=== PATIENT | male | born 1985 | race Asian ===

== ENCOUNTER → 2016-07-29 | Outpatient (CLI) | payer BC | LOC: YCFC.O 09:47 | PROVIDERS: ATTEND Nurse Practitioner Family | DX: Z00.00 Encounter for general adult medical examination without abnormal findings (principal); Z13.9 Encounter for screening, unspecified ==

== ENCOUNTER → 2017-07-14 | Outpatient (CLI) | payer BC | END | disposition home or self-care (01) | LOC: LAB.O 09:21 | PROVIDERS: ATTEND Nurse Practitioner Family | DX: Z00.00 Encounter for general adult medical examination without abnormal findings (principal) ==

== ENCOUNTER → 2017-07-16 | Outpatient (CLI) | payer BC | END | disposition home or self-care (01) | LOC: YCFC.O 12:47 | PROVIDERS: ATTEND Nurse Practitioner Family | DX: R53.81 Other malaise (principal) ==

== ENCOUNTER → 2017-11-04 | Outpatient (CLI) | payer BC ==
--- NOTE | 2017-11-04 16:27 | RAD ---
EXAM DESCRIPTION: Chest,2 Views CLINICAL HISTORY: PRECORDIAL CHEST PAIN COMPARISON: None TECHNIQUE: PA/lateral FINDINGS: Heart size is normal with normal pulmonary vascularity. No pleural effusion or pneumothorax. Lungs are normal in volume. Lateral view shows intact sternum and T-spine. On the lateral view, markings are prominent over the posterior aspect of the cardiac silhouette suggesting crowded vessels or interstitial infiltrate or scarring. This may be in the medial right lung base. Other areas of the lungs are clear. IMPRESSION: Minimal infiltrate or atelectasis in the medial right lung base. Otherwise clear chest. Electronically signed by: Calderon Banks MD 11/04/2017 4:26 PM CDT
== END ==
LOC: LAB.O 09:55
PROVIDERS: ATTEND Nurse Practitioner Family
DX: R07.2 Precordial pain (principal)

== ENCOUNTER 2017-11-07 00:04 | Emergency (ER) | payer BC ==
[2017-11-07] MEDS ORDERED: NITROGLYCERIN 0.4 MG 25 EA TAB SL ONE (00:10)
[2017-11-07] MEDS ORDERED: ASPIRIN TABLET 325 MG TAB ONE (00:10)
[2017-11-07 00:29] VITALS: TEMP 98.2
[2017-11-07] MEDS ORDERED: ASPIRIN TABLET 325 MG TAB PO ONE (00:31)
[2017-11-07] MEDS ORDERED: IPRATROPIUM BROMIDE NEBS 0.5 MG/2.5 ML VIAL NEB ONE (00:31)
[2017-11-07] MEDS ORDERED: predniSONE 20 MG TAB PO ONE (00:31)
--- NOTE | 2017-11-07 01:22 | RAD ---
EXAM: PA and LATERAL CHEST RADIOGRAPHS CLINICAL INDICATION: Acute chest pain. COMPARISON: Compared to the chest radiographs of November 04, 2017. FINDINGS: Cardiac size and pulmonary vasculature are normal. Lungs are clear. No pleural effusions or pneumothorax. No free peritoneal gas layering under the hemidiaphragms. No suspicious hilar or mediastinal lymphadenopathy. Bones are normal. IMPRESSION: Normal chest radiographs. Electronically signed by: Bryon Garcia MD 11/07/2017 1:20 AM CDT
[2017-11-07] MEDS ORDERED: POTASSIUM CHLORIDE ELIXIR 20 MEQ/15 ML UD PO ONE (01:46)
[2017-11-07] MEDS ORDERED: AMOXICILLIN & POT CLAVULANATE 875 MG TAB PO ONE (01:47)
--- NOTE | 2017-11-07 01:50 | ED.PDOC ---
History of Present Illness - General Chief Complaint: Chest Pain/WA Stated Complaint: chest pain Time Seen by Provider: 11/07/17 00:11 Source: patient Exam Limitations: no limitations - History of Present Illness Initial Comments: the patient is a 32-year-old male presenting to the emergency room secondary to chest pain as been ongoing for the last week. Chest pain is actually sternal to substernal. It is worse with sitting up and standing up. It is not really worse with exertion. It is a little better with lying back. He has had a mild cough and has recently had a mild asthma exacerbation. Chest x-ray from 2 days ago showed a mild right infrahilarinfiltrate versus atelectasis. No fever and no productive cough. No syncope or near syncope. He does have several family members with known coronary-related heart issues. He has a known right bundle branch block that wasknown at least 3 years ago. No history of any coronary artery disease. No palpitations. No history of any pericarditis. No fevers. Physical exam shows tenderness to palpation over the sternum itself. No rub is heard. No significant murmurs are heard. Lungs do show some mild scattered wheezes. The patient reports he cannot take any beta agonist medications. Timing/Duration: 1 week Severity: mild Improving Factors: nothing Worsening Factors: movement Associated Symptoms: denies symptoms Allergies/Adverse Reactions: Allergies Albuterol [From Ventolin] Allergy (Verified 09/27/14 00:42) Home Medications: Ambulatory Orders Amoxicillin & Pot Clavulanate [Augmentin Tab] 875 mg PO BID #10 tab 11/07/17 Colchicine 0.6 mg PO DAILY #5 cap 11/07/17 predniSONE [Prednisone] 20 mg PO DAILY #5 tab 11/07/17 Review of Systems - Review of Systems Constitutional: States: no symptoms reported EENTM: States: no symptoms reported Respiratory: States: short of breath, wheezing Cardiology: States: chest pain Gastrointestinal/Abdominal: States: no symptoms reported Genitourinary: States: no symptoms reported Musculoskeletal: States: no symptoms reported Skin: States: no symptoms reported Neurological: States: no symptoms reported Endocrine: States: no symptoms reported All other Systems: No Change from Baseline Past Medical History (General) - Patient Medical History Hx Asthma: Yes Hx Cardiac Disorders: Yes Hx Hypertension: Yes Hx Gastroesophageal Reflux: Yes Surgical History: no surgical history - Vaccination History Hx Tetanus, Diphtheria Vaccination: Yes - 10yrs Hx Influenza Vaccination: Yes - 2017 - Social History Hx Tobacco Use: Yes Hx Alcohol Use: Yes - occ Family Medical History - Family History Father Family History: Unknown Physical Exam - Physical Exam General Appearance: Alert, Comfortable, No apparent distress Eye Exam: bilateral normal Ears, Nose, Throat: hearing grossly normal, normal ENT inspection, normal pharynx Neck: full range of motion, supple Respiratory: chest non-tender, lungs clear, normal breath sounds, no respiratory distress, no accessory muscle use Cardiovascular/Chest: normal peripheral pulses, regular rate, rhythm, no edema Peripheral Pulses: radial,right: 2+, radial,left: 2+, dorsalis pedis,right: 2+, dorsalis pedis,left: 2+ Gastrointestinal/Abdominal: non tender, soft Rectal Exam: deferred Back Exam: normal inspection, no CVA tenderness Extremity: normal range of motion, non-tender, normal inspection, no pedal edema , normal capillary refill Neurologic: [employer] II-XII nml as tested, alert, normal mood/affect, oriented x 3 Skin Exam: normal color Comments: Vital Signs - 24 hr 11/07/17 00:20 Temperature 98.2 F Pulse Rate [ 68 left] Respiratory 18 Rate Blood Pressure 149/95 [left] O2 Sat by Pulse 97 Oximetry Progress - Progress Progress: 11/07/17 01:53 the patient is a 32-year-old male presenting to the emergency room secondary to atypical chest pain for the better part of the last 5-6 days. He does have some costochondritis which may be due to gout given his elevated uric acid level. He was given a dose of colchicine here and will be written for this for the next 5 days. Additionally he did have some mild hypokalemia and was given a dose of potassium here today. This needs to be followed in one to 2 weeks. Additionally a free T4 was sent out in response to a low TSH drawn earlier this week. This is a send out lab and does need to be followed up with his primary care doctor. The patient is also going to be placed on low-dose prednisone for his asthma for the next 5 days and Augmentin for the possibility of a small right infrahilar infiltrate contributing to his symptoms. The patient is to keep himself well-hydrated. He needs to minimize red meat and beer for the next couple of weeks in case this is contributing to a gout flare. ER warnings were given for any significant worsening. I do recommend that the patient also get set up with an echocardiogram in the near future given his right bundle branch block and his family history. - Results/Orders Results/Orders: 11/08/17 00:30 EKG STAT old right bundle branch block. This makes it difficult to interpret the EKG otherwise. He has normal sinus rhythm. Rate is 77 bpm. Consistent with EKG from 2015. Chest x-ray today shows no acute changes. He does have a small right infrahilarinfiltrate versus atelectasis. Laboratory Results - last 24 hr 11/07/17 11/07/17 11/07/17 00:40 00:40 00:40 WBC 7.3 RBC 5.06 Hgb 15.4 Hct 44.8 MCV 88.4 MCH 30.5 MCHC 34.5 RDW 12.7 Plt Count 306 MPV 7.6 Absolute Neuts (auto) 4.20 Absolute Lymphs (auto) 1.90 Absolute Monos (auto) 0.80 Absolute Eos (auto) 0.40 Absolute Basos (auto) 0.10 Neutrophils % 57.1 Lymphocytes % 25.8 Monocytes % 10.3 H Eosinophils % 6.1 H Basophils % 0.7 PT 11.7 INR 1.010 PTT (SP) 32.1 D-Dimer, Quantitative < 230 Sodium 136 Potassium 3.5 L Chloride 101 Carbon Dioxide 27 Anion Gap 11.5 L BUN 16 Creatinine 0.83 BUN/Creatinine Ratio 19.3 Random Glucose 113 H Serum Osmolality 274.0 L Uric Acid 9.9 H Calcium 9.7 Magnesium 2.0 Total Bilirubin 0.9 AST 26 ALT 41 Alkaline Phosphatase 64 D Creatine Kinase 182 H CK-MB (CK-2) 2.2 CK-MB (CK-2) % Not Reportable Troponin I < 0.02 B-Natriuretic Peptide 13.1 Serum Total Protein 7.8 Albumin 4.5 Globulin 3.3 Albumin/Globulin Ratio 1.4 Departure - Departure Clinical Impression: Atypical chest pain, Hyperuricemia Disposition: Discharge to Home or Self Care Condition: Fair Departure Forms: ED Discharge - Pt. Copy, Patient Portal Self Enrollment Diet: other Activity: increase activity as tolerated Referrals: Kathy Matute NP [Primary Care Provider] - 1-5 Days Prescriptions: Amoxicillin & Pot Clavulanate [Augmentin Tab] 875 mg PO BID #10 tab Colchicine 0.6 mg PO DAILY #5 cap predniSONE [Prednisone] 20 mg PO DAILY #5 tab Home Medications: Ambulatory Orders Amoxicillin & Pot Clavulanate [Augmentin Tab] 875 mg PO BID #10 tab 11/07/17 Colchicine 0.6 mg PO DAILY #5 cap 11/07/17 predniSONE [Prednisone] 20 mg PO DAILY #5 tab 11/07/17 Additional Instructions: the patient is a 32-year-old male presenting to the emergency room secondary to atypical chest pain for the better part of the last 5-6 days. He does have some costochondritis which may be due to gout given his elevated uric acid level. He was given a dose of colchicine here and will be written for this for the next 5 days. Additionally he did have some mild hypokalemia and was given a dose of potassium here today. This needs to be followed in one to 2 weeks. Additionally a free T4 was sent out in response to a low TSH drawn earlier this week. This is a send out lab and does need to be followed up with his primary care doctor. The patient is also going to be placed on low-dose prednisone for his asthma for the next 5 days and Augmentin for the possibility of a small right infrahilar infiltrate contributing to his symptoms. The patient is to keep himself well-hydrated. He needs to minimize red meat and beer for the next couple of weeks in case this is contributing to a gout flare. ER warnings were given for any significant worsening. I do recommend that the patient also get set up with an echocardiogram in the near future given his right bundle branch block and his family history.
[2017-11-07] MEDS ORDERED: COLCHICINE 0.6 MG TAB PO ONE (01:57)
[2017-11-07 02:17] VITALS: O2SAT 98
[2017-11-07 02:18] VITALS: BP 142/87
== END 2017-11-07 02:18 | disposition home or self-care (01) ==
LOC: ER 00:04
DX: R07.89 Other chest pain (principal); E79.0 Hyperuricemia without signs of inflammatory arthritis and tophaceous disease; E87.6 Hypokalemia; I45.10 Unspecified right bundle-branch block; J45.909 Unspecified asthma, uncomplicated; I10 Essential (primary) hypertension; Z82.49 Family history of ischemic heart disease and other diseases of the circulatory system; Z87.891 Personal history of nicotine dependence
CPT/HCPCS: 36415; 71046; 80053; 82550; 82553; 83735; 83880; 84439; 84484; 84550; 85025; 85379; 85610; 85651; 85730; 93005; 94640; J7512; J7644

== ENCOUNTER → 2017-11-12 | Outpatient (CLI) | payer BC | LOC: GMAM 14:27 | PROVIDERS: ATTEND Family Medicine | DX: R94.6 Abnormal results of thyroid function studies (principal) ==

== ENCOUNTER → 2018-07-09 | Outpatient (CLI) | payer BC | LOC: GMAJS 10:33 | PROVIDERS: ATTEND Physician Assistant | DX: Z02.89 Encounter for other administrative examinations (principal) ==

== ENCOUNTER → 2018-07-29 | Outpatient (CLI) | payer BC | LOC: GMAM 11:41 | PROVIDERS: ATTEND Family Medicine | DX: K62.5 Hemorrhage of anus and rectum (principal) ==

== ENCOUNTER → 2018-08-04 | Outpatient (CLI) | payer BC ==
--- NOTE | 2018-08-04 09:03 | US ---
EXAM DESCRIPTION: Gall Bladder CLINICAL HISTORY: RIGHT UPPER QUADRANT ABDOMIAL PAIN COMPARISON: None Available. TECHNIQUE: Right upper quadrant ultrasound FINDINGS: Pancreas: Visualized portions of the pancreas are unremarkable. Bowel gas obscures some areas. Aorta/inferior vena cava: No aortic aneurysm. Normal inferior vena cava. Liver: The liver is homogeneous in texture with normal echogenicity of the hepatic parenchyma. No focal liver lesion or intrahepatic bile duct dilatation. No liver surface irregularity. Normal appearance of the portal vein and hepatic veins. Gallbladder: Gallbladder appears normal in size with multiple polyps, the largest 9 mm. These could be followed up with repeat gallbladder sonogram in 6-12 months. Common bile duct: Normal caliber measuring 4.0 mm. Right kidney: Renal length is 9.3 cm, slightly small for an adult. Normal cortical echogenicity. Cortical thickness is normal. No hydronephrosis is seen. No renal mass or shadowing calculus. IMPRESSION: Multiple gallbladder polyps. Electronically signed by: Calderon Banks MD 08/04/2018 9:02 AM [facility]
== END ==
LOC: US 08:05
PROVIDERS: ATTEND Family Medicine
DX: R10.11 Right upper quadrant pain (principal); K82.4 Cholesterolosis of gallbladder

== ENCOUNTER 2018-10-15 05:43 | Observation (INO) | payer BC ==
[2018-10-15] MEDS ORDERED: LACTATED RINGERS 1,000 ML ONE (05:53)
[2018-10-15] MEDS ORDERED: PROPOFOL 200 MG/20 ML VIAL IV ONE (07:00)
[2018-10-15] MEDS ORDERED: LACTATED RINGERS 1,000 ML BAG IV ONE (10:55)
--- NOTE | 2018-10-15 12:27 | RAD ---
EXAM DESCRIPTION: Chest,1 View CLINICAL HISTORY: 33 years Male, Post Op check for aspiration COMPARISON: Previous chest x-ray November 07, 2017 TECHNIQUE: AP portable chest. FINDINGS: Heart size is prominent with normal pulmonary vascularity. Increased density is seen in the lingula and left lower lobe consistent with infiltrate or volume loss, possibly pneumonia or aspiration. No pulmonary mass or worrisome nodule. No pneumothorax or pleural effusion. Bones are unremarkable. IMPRESSION: Infiltrate/volume loss in the left lower lobe and lingula. Electronically signed by: Calderon Banks MD 10/15/2018 12:24 PM CDT
[2018-10-15] MEDS ORDERED: LEVALBUTEROL NEBS 1.25 MG/3 ML VIAL NEB ONE ×2 (12:33→12:50)
--- NOTE | 2018-10-15 13:16 | OP ---
DATE OF PROCEDURE: 10/15/18 PREPROCEDURE DIAGNOSIS: 1. Rectal bleeding. POSTPROCEDURE DIAGNOSIS: 1. Large non-bleeding internal hemorrhoids. PROCEDURE: 1. Colonoscopy. SURGEON: Torito Sanders MD COMPLICATIONS: No immediate complications. SEDATION: The patient was sedated via IV propofol by the Anesthesia Department. CONSENT: Prior to the procedure, risks, benefits and alternatives to the therapy were discussed with the patient. The risks included bleeding, infection, perforation and . The patient agreed to the procedure and signed a consent. PREPROCEDURE ANESTHESIA ASSESSMENT: An examination revealed no contraindication to sedation. Airway examination demonstrated a Mallampati class type 2, ASA grade assessment type 2. Throughout the procedure, the patient's blood pressure and additional vital signs were closely monitored. PROCEDURE: The patient was placed in the left lateral decubitus position and a rectal examination was performed. Digital examination was within normal limits. The Olympus colonoscope was passed in the anus, rectum, traversing the colon to the level of the cecum as identified by the appendiceal orifice. The scope was retracted and the mucosa was visualized. The entirety of the exam was performed under direct visualization. Retroflexion was performed in the rectum. Preparation quality was excellent. The withdrawal time was greater than 6 minutes. The patient tolerated the procedure well. FINDINGS: 1. The entirety of the examination of the colon was unremarkable. 2. Large non-bleeding internal hemorrhoids, grade 2, were found in retroflexion. 3. The terminal ileum appeared normal. RECOMMENDATION: 1. Return the patient home. 2. Resume previous diet favoring high-fiber foods. 3. May add Citrucel 2 doses every day. 4. If recurrent or persistent rectal bleeding, may proceed with hemorrhoidal banding. 5. Return to my office p.r.n. 6. Findings were discussed with the patient and family member. [facility][id number] [facility]
[2018-10-15] MEDS ORDERED: LEVALBUTEROL NEBS 1.25 MG/3 ML VIAL INH PRN (13:55)
[2018-10-15] MEDS ORDERED: SODIUM CHLORIDE 0.9% (FLUSH) 10 ML SYG IV PRN (13:55)
[2018-10-15] MEDS ORDERED: ACETAMINOPHEN 325 MG TAB PO PRN (13:55)
[2018-10-15] MEDS ORDERED: IV SET AND CAP CHANGE INJ INJ SCH (14:00)
[2018-10-15] MEDS ORDERED: AMPICILLIN & SULBACTAM SODIUM 1.5 GM in SODIUM CHL 0.9% 50ML MIN-BAG+ 50 ML IVPB ONE (14:01)
[2018-10-15] MEDS ORDERED: methylPREDNISolone SODIUM SUC 125 MG/2 ML VIAL IV ONE (14:03)
--- NOTE | 2018-10-15 14:08 | RAD ---
EXAM DESCRIPTION: Chest,1 View CLINICAL HISTORY: 33 years Male, ASPIRATION PNEUMONIA COMPARISON: Previous study October 15, 2018 TECHNIQUE: AP portable chest. FINDINGS: Heart size is prominent with normal pulmonary vascularity. Infiltrate has increased in extent in the mid and left lower lung zones. There is partial obscuration of the left heart margin suggesting lingular involvement as well as abnormal density behind the heart consistent with lower lobe involvement. There is partial obscuration of the peripheral left hemidiaphragm. Findings are consistent with pneumonia. No pulmonary mass or worrisome nodule. No pneumothorax or pleural effusion. Bones are unremarkable. IMPRESSION: Pneumonic infiltrate increasing in extent in the mid and left lower lung zones. Electronically signed by: Calderon Banks MD 10/15/2018 2:05 PM CDT
--- NOTE | 2018-10-15 14:19 | HP ---
SUPERVISING PHYSICIAN: Matias Bennett M.D. CHIEF COMPLAINT: Aspiration post sedation. HISTORY OF PRESENT ILLNESS: Mr. Mendenhall is a 33 year-old male that had an EGD and colonoscopy today. He had no complications until after he was given a dose of Propofol and on expiration of the scope he had some aspiration of gastric contents. In the PACU he developed a left sided infiltrate. Dr. Bennett, his primary care physician, requested the patient be placed in observation for acute aspiration for closer monitoring and treatment. He was started on antibiotics with Unasyn and given some Solu-Medrol and inhaled steroids, and oxygen. He was placed in observation in stable condition. PAST MEDICAL HISTORY: 1. Right bundle branch block. 2. Asthma. 3. Gout. 4. History of hemorrhoids. PAST SURGICAL HISTORY: No surgeries. HOME MEDICATIONS: 1. Allopurinol 100 mg daily. ALLERGIES: ALBUTEROL. FAMILY HISTORY: Mother has asthma. Father has prostate cancer. He had an uncle that from hematological cancer with severe anemia at 40 years of age. He has 2 children that are all healthy. SOCIAL HISTORY: The patient lives in [place]. He is . 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 He has only a brief history of smoking for a year in 2003 and 2004 while in school. He rarely drinks alcohol. Does not use illicit drugs. REVIEW OF SYSTEMS: CONSTITUTIONAL: Negative for any chills, fevers, general malaise, unintentional weight loss. HEENT: Negative for any headaches, vision changes, sore throat, nasal congestion, ear aches. RESPIRATORY: As noted in History of Present Illness, acute aspiration with some shortness of breath. HEART: History of right bundle branch block but no chest pains, palpitations or syncopal episodes. GASTROINTESTINAL: As noted in history of present illness, recent colonoscopy with hemorrhoids noted. No abdominal pains, constipation or diarrhea. GENITOURINARY: Denies any dysuria, hematuria or polyuria. MUSCULOSKELETAL: No complaints. NEUROLOGIC: Negative for ataxia, seizures, syncope or other neurological deficits. PHYSICAL EXAMINATION: VITAL SIGNS: Temperature 97.5, pulse 107, blood pressure 120/81, respirations 16, showing 100% saturation on nasal cannula at 2 liters at rest. GENERAL: The patient was seen in PACU. He is resting comfortably. Appears to be in no distress. HEENT: Tympanic membranes were clear bilaterally. Oropharynx was pink and moist without any lesions. NECK: Supple, non-tender. Full range of motion. No jugular venous distention. CHEST: Lung sounds are diminished on the left with some rhonchi compared to the right which is clear. No wheezing or rales. CARDIOVASCULAR: Regular rate and rhythm. ABDOMEN: Soft, non-tender. Positive bowel sounds. EXTREMITIES: Without any edema. NEUROLOGIC: He is alert and oriented times three. LABORATORY: White count 11,500. Chemistries showed normal electrolytes, BUN 15, creatinine 1.09. RADIOLOGY: Chest x-ray per radiology interpretation post aspiration event showed pneumonic infiltrate increasing to the extent of the mid and left lower lung zones. No pulmonary mass or worrisome nodule. No pneumothorax. Findings were consistent with pneumonia. ASSESSMENT: 1. Acute pneumonitis secondary to aspiration post esophagogastroduodenoscopy with concerns for developing pneumonia. 2. History of asthma with exacerbation secondary to #1. 3. History of right bundle branch block with no complications. 4. History of gout on Allopurinol. 5. History of recent colonoscopy and esophagogastroduodenoscopy with no significant findings other than hemorrhoids reported per the patient. PLAN: The patient is going to be placed in observation. I started him on Unasyn 1.5 grams every 8 hours. He will be on Xopenex every 4 hours with p.r.n. treatments as needed. Will also give him 125 of Solu-Medrol IV. Will put him on some Pulmicort. Also put him on CPAP or BiPAP as tolerated to help recruit some lung zones on the left side. Will closely monitor the patient and hopefully he will discharge tomorrow. At discharge he will need continued followup with Dr. Bennett and more likely will send him home on continued antibiotic coverage with Augmentin. Until he can continue with outpatient management will continue to monitor and treat as needed. [facility][id number] [facility]
[2018-10-15] MEDS ORDERED: AMPICILLIN & SULBACTAM SODIUM 1.5 GM VIAL ONE ×2 (14:32→21:56)
[2018-10-15] MEDS ORDERED: SODIUM CHL 0.9% 50ML MIN-BAG+ 50 ML IVPB ONE ×2 (14:33→21:56)
[2018-10-15] MEDS: BUDESONIDE NEBS 0.5 MG/2 ML VIAL NEB SCH ×2 (14:36→20:19)
[2018-10-15] MEDS: LEVALBUTEROL NEBS 1.25 MG/3 ML VIAL INH SCH ×3 (14:37→20:19)
[2018-10-15] MEDS: AMPICILLIN & SULBACTAM SODIUM 1.5 GM in SODIUM CHL 0.9% 50ML MIN-BAG+ 50 ML IVPB SCH (22:01)
[2018-10-16] MEDS ORDERED: SODIUM CHL 0.9% 50ML MIN-BAG+ 0 ML IVPB ONE (04:15)
[2018-10-16] MEDS ORDERED: AMPICILLIN & SULBACTAM SODIUM 3 GM VIAL ONE (04:17)
[2018-10-16] MEDS ORDERED: SODIUM CHLORIDE 0.9% 50ML 50 ML ONE (04:21)
[2018-10-16] MEDS: AMPICILLIN & SULBACTAM SODIUM 1.5 GM in SODIUM CHL 0.9% 50ML MIN-BAG+ 50 ML IVPB SCH (05:08)
--- NOTE | 2018-10-16 06:20 | RAD ---
EXAM: Two view chest. INDICATION: Pneumonia. COMPARISON: Chest x-ray: 10/15/2018. FINDINGS: There are grossly stable airspace opacities involving the left lower lobe and lingula. The right lung is clear. The heart is normal in size. There is no pneumothorax or pleural effusion. The bones are unchanged. IMPRESSION: No significant change compared to the prior exam. Multifocal pneumonia. Electronically signed by: Kg Meyer MD 10/16/2018 6:16 AM CDT Workstation: [id number]
[2018-10-16 06:47] VITALS: BP 106/69; TEMP 99
[2018-10-16] MEDS: BUDESONIDE NEBS 0.5 MG/2 ML VIAL NEB SCH (08:17)
[2018-10-16] MEDS: LEVALBUTEROL NEBS 1.25 MG/3 ML VIAL INH SCH (08:17)
[2018-10-16] MEDS ORDERED: ALLOPURINOL 100 MG TAB PO SCH (09:00)
[2018-10-16] MEDS ORDERED: SODIUM CHLORIDE 0.9% (FLUSH) 10 ML SYG IV SCH (09:00)
[2018-10-16 09:43] VITALS: O2SAT 95
== END 2018-10-16 09:20 | disposition home or self-care (01) ==
LOC: AMB 05:43 → INTOOBSV 14:17 → MS 14:17
PROVIDERS: ADMIT Nurse Practitioner Family; ATTEND Nurse Practitioner Family
DX: J95.4 Chemical pneumonitis due to anesthesia (principal); T41.295A Adverse effect of other general anesthetics, initial encounter; K62.5 Hemorrhage of anus and rectum; K64.8 Other hemorrhoids; J45.901 Unspecified asthma with (acute) exacerbation; I45.10 Unspecified right bundle-branch block; M10.9 Gout, unspecified; Y92.238 Other place in hospital as the place of occurrence of the external cause; Z79.899 Other long term (current) drug therapy; Z88.8 Allergy status to other drugs, medicaments and biological substances; Z87.891 Personal history of nicotine dependence; Z82.5 Family history of asthma and other chronic lower respiratory diseases; Z80.42 Family history of malignant neoplasm of prostate; Z80.8 Family history of malignant neoplasm of other organs or systems
CPT/HCPCS: 45378; 00811; 96366; 96365; 96375; 96376; J0295 ×3; J2930; J3490; A4216; J7626 ×3; J7050 ×2; J7614 ×6; J7120 ×2; 80048 ×2; 36415 ×2; 85025 ×2; 71045 ×2; 71046; 94660; 94640 ×5; 94762; G0378